=== PATIENT | male | born 2000 | race Caucasian/White ===

== ENCOUNTER 2022-04-05 20:38 | Emergency (ER) | payer OTHER ==
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
[2022-04-05] MEDS ORDERED: DIAZEPAM 5 MG/ML 2 ML INJ IM ONE (22:52)
[2022-04-05] MEDS ORDERED: HYDROmorphone 1 MG/ML 1 ML SYRINGE IM STA (22:52)
[2022-04-05] MEDS ORDERED: DIAZEPAM 5 MG/ML 2 ML INJ IVP STA (22:53)
[2022-04-05] MEDS ORDERED: HYDROmorphone 1 MG/ML 1 ML SYRINGE IVP STA (22:54)
[2022-04-05] MEDS ORDERED: HYDROmorphone 0.5 MG/0.5 ML SYRINGE IM STA (23:30)
[2022-04-05] MEDS ORDERED: HYDROmorphone 0.5 MG/0.5 ML SYRINGE IVP STA (23:40)
[2022-04-05] MEDS ORDERED: KETAMINE 10 MG/ML 20 ML VIAL IV ONE (23:49)
--- NOTE | 2022-04-05 23:52 | XR ---
EXAMINATION TYPE: XR elbow limited LT DATE OF EXAM: 04/05/2022 COMPARISON: NONE HISTORY: Pain TECHNIQUE: Single view FINDINGS: There is a posterior dislocation of the elbow joint. No fracture line definitely seen. IMPRESSION: Posterior left elbow joint dislocation. There is some overriding of the distal humerus wi th the proximal radius and ulna.
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
[2022-04-06] MEDS ORDERED: KETAMINE 10 MG/ML 20 ML VIAL IV STA (00:39)
--- NOTE | 2022-04-06 01:45 | XR ---
EXAM: XR Left Elbow Complete, 3 or More Views CLINICAL HISTORY: ITS.REASON XR Reason: post-reduction TECHNIQUE: Frontal, lateral and oblique views of the left elbow. COMPARISON: Comparison made to prior plain film images of the left elbow from March 27, 2022 8050 8 PM. FINDINGS: Bones/joints: Unremarkable. No acute fracture. No dislocation. Soft tissues: Unremarkable. IMPRESSION: Interval reduction of the elbow joint. The previously seen olecranon fracture fragment is not visualized on this study.
[2022-04-06 02:30] VITALS: BP 137/94; PULSE 69; RESP 20; TEMP 98.1
== END 2022-04-06 02:30 | disposition home or self-care (01) ==
LOC: EC 20:38
DX: S53.105A Unspecified dislocation of left ulnohumeral joint, initial encounter (principal); F17.200 Nicotine dependence, unspecified, uncomplicated; Z88.0 Allergy status to penicillin; V89.9XXS Person injured in unspecified vehicle accident, sequela
CPT/HCPCS: 73070 ×2; 73080; 24600; 99283; 96374; 96375; J3360; J1170 ×2